=== PATIENT | male | born 1975 | race Caucasian/White ===

== ENCOUNTER → 2023-07-25 | Emergency (ER) | payer OTHER, SELFPAY ==
[~2023-07-25] MED LIST: KETOROLAC 30 MG/ML INJ ONE; MORPHINE 4 MG/ML SYR ONE; NA CHLORIDE 0.9% 1,000 ML ONE; ONDANSETRON 4 MG/2 ML VIAL ONE
[2023-07-25 08:17] LABS: Absolute Lymphocytes (CBC) 1.4 K/uL (0.7-4.9); Hematocrit 48.7 % (39.6-49.0); Lymphocytes % 22.9 % (15.3-44.8); MCV 89.2 fL (80-100); MPV 8.3 fL (7.6-11.3); Platelets 208 thou/uL (152-406); RBC Red Blood Cell Count 5.46 M/uL (4.33-5.43)
[2023-07-25 08:35] LABS: Specific Gravity 1.019 (1.005-1.030); Urine Bilirubin NEGATIVE (Negative); Urine Blood Negative (Negative); Urine Clarity Clear (Clear); Urine Color Light-Yellow (Yellow); Urine Glucose NEGATIVE (Negative); Urine Protein NEGATIVE (Negative); Urine Urobilinogen Normal (Normal)
[2023-07-25 08:41] LABS: Albumin 4.2 g/dL (3.4-5.0); Bilirubin Total 0.9 mg/dL (0.2-1.0); Protein, Total 8.1 g/dL (6.4-8.2)
[2023-07-25 08:42] LABS: Potassium 4.1 mEq/L (3.5-5.1)
--- NOTE | 2023-07-25 09:04 | RAD REPORT ---
EXAM DESCRIPTION: CT - Abdomen Pelvis Wo Contrast - 07/25/2023 8:32 am CLINICAL HISTORY: ABD PAIN COMPARISON: No comparisons TECHNIQUE: Thin cut axial CT imaging of the abdomen and pelvis was performed without IV contrast. Mu ltiplanar reformats were generated and reviewed. All CT scans are performed using dose optimization technique as appropriate and may include automated exposure control or mA/KV adjustment according to patient size. FINDINGS: No suspicious findings in the lung bases. The liver, spleen, and pancreas show no suspicious findings. Gallbladder was surgically removed. Left adrenal small mass measuring 2.2 cm, with internal density of about 10 Hounsfield units, not compati ble with a lipid rich adenoma. Symmetric renal contour, without suspicious parenchymal findings within limits of noncontrast techniq ue apart from multifocal cortical thinning more pronounced on the right, which may relate to sequelae of remote infarctions. . No evidence of radiopaque calculi or hydroureteronephrosis. No dilated bowel loops or bowel wall thickening. Appendix is unremarkable. Fluid filling throughout l duke segments of the proximal small bowel, nonspecific. Mild colonic diverticulosis. No free air, free fluid or inflammatory stranding. Small left inguinal hernia containing fat. No suspicious mass or bu lky lymphadenopathy. The urinary bladder is without significant finding. No suspicious bony findings. IMPRESSION: Fluid filling within proximal nondistended small bowel, nonspecific, and may relate to m ild enteritis or diarrheal state. Incidentally noted left adrenal 2.2 cm mass, which can be further evaluated by adrenal protocol MRI o utpatient basis, if no prior imaging evaluation of this lesion was performed.
--- NOTE | 2023-07-25 10:56 | RAD REPORT ---
EXAM DESCRIPTION: US - Scrotum Testicles - 07/25/2023 10:07 am CLINICAL HISTORY: L teste pain COMPARISON: No comparisons TECHNIQUE: Sonographic grayscale and color flow images of the scrotum were obtained. FINDINGS: The right testicle measures 4.7 x 2.3 x 2.8 cm. No intratesticular masses or evidence of t esticular torsion. The left testicle measures 4.6 x 2.2 x 3.0 cm. No intratesticular masses or evidence of testicular to rsion. Both epididymides are normal in size and appearance apart from small right epididymal head 4 mm cyst, and bilobed 7 mm left epididymal head cyst. No pathologic fluid collections. IMPRESSION: Unremarkable study apart from small bilateral epididymal head cysts, may represent small spermatoceles.
--- NOTE | 2023-07-25 11:40 | ER ---
Nurse's Notes [facility] Name: Dallas Jeff Age: 47 yrs Sex: Male : 1975 Arrival Date: 07/25/2023 Time: 07:23 Bed 13 Private MD: Diagnosis: Noninfective gastroenteritis and colitis, unspecified Presentation: 07/25 07:57 Chief complaint: Intermittent left flank pain x 1 month, pain started to radiate to hb left groin + difficulty urinating since yesterday. Coronavirus screen: At this time, the client does not indicate any symptoms associated with coronavirus-19. Ebola Screen: No symptoms or risks identified at this time. Initial Sepsis Screen: Does the patient meet any 2 criteria? No. Patient's initial sepsis screen is negative. Does the patient have a suspected source of infection? No. Patient's initial sepsis screen is negative. Risk Assessment: Do you want to hurt yourself or someone else? Patient reports no desire to harm self or others. Onset of symptoms was June 2023. 07:57 Method Of Arrival: Wheelchair hb 07:57 Acuity: LISA 3 hb Triage Assessment: 07:57 General: Appears in no apparent distress. Behavior is calm, cooperative. Pain: Pain hb currently is 5 out of 10 on a pain scale. at worst was 9 out of 10 on a pain scale. EENT: No signs and/or symptoms were reported regarding the EENT system. Neuro: Level of Consciousness is awake, alert, obeys commands, Oriented to person, place, time, situation. Cardiovascular: Patient's skin is warm and dry. Respiratory: Respiratory effort is even, unlabored, Respiratory pattern is regular, symmetrical. GI: Reports nausea. : Reports pain flank(s), difficulty urinating. Derm: Derm: Skin is pink, warm \T\ dry. Musculoskeletal: No signs and/or symptoms reported regarding the musculoskeletal system. Historical: - Allergies: 07:59 No Known Allergies; hb - Home Meds: 07:59 Rybelsus oral [Active]; Januvia oral [Active]; hb - PMHx: 07:59 DM2; hb - PSHx: 07:59 None; hb - Immunization history:: Adult Immunizations up to date. - Social history:: Smoking status: Patient denies any tobacco usage or history of. Screenin:55 [facility] ED Fall Risk Assessment (Adult) Score/Fall Risk Level 0 - 2 = Low Risk hb Oriented to surroundings, Maintained a safe environment. Abuse screen: Denies threats or abuse. Denies injuries from another. Nutritional screening: No deficits noted. Tuberculosis screening: No symptoms or risk factors identified. Assessment: 08:00 General: See triage assessment. . hb Vital Signs: 07:57 BP 141 / 90; Pulse 72; Resp 16; Temp 98(O); Pulse Ox 98% on R/A; Weight 95.25 kg; hb Height 5 ft. 6 in. ; Pain 5/10; 07:57 Body Mass Index 33.89 (95.25 kg, 167.64 cm) hb 07:57 Pain Scale: Adult hb ED Course: 07:26 Patient arrived in ED. im 07:57 Jose Oropeza MD is Attending Physician. ec2 07:58 Triage completed. hb 08:01 Arm band placed on. hb 08:15 Patient has correct armband on for positive identification. Provided Education on: hb tests, result times. 08:20 Initial lab(s) drawn, by me, sent to lab. Inserted saline lock: 20 gauge in right em1 forearm, using aseptic technique. Blood collected. 08:26 CMP Sent. hb 08:26 Lipase Sent. hb 08:26 Urinalysis w/ reflexes Sent. hb 08:34 CT Abd/Pelvis - Without Contrast In Process Unspecified. EDMS 09:28 Paris Vanessa, RN is Primary Nurse. ph 10:09 US Scrotum Testicles In Process Unspecified. EDMS Administered Medications: 08:20 Drug: NS 0.9% IV 1000 ml IV at 1 bolus Per protocol; 1000 mL bolus Route: IV; Rate: 1 hb bolus; Site: right antecubital; 08:20 Drug: TORadol - Ketorolac IVP 15 mg IVP once Route: IVP; Site: right antecubital; hb 08:20 Drug: Ondansetron IVP 4 mg IVP once; over 2 minutes Route: IVP; Site: right antecubital;hb 08:20 Drug: morphine IVP or IV 4 mg IVP once over 4 mins Route: IVP; Infused Over: 4 mins; hb Site: right antecubital; Medication: 08:00 VIS not applicable for this client. hb Outcome: 11:39 Discharge ordered by . ec2 12:14 Patient left the ED. ph Signatures: Dispatcher [employer] Robbie Lopez em1 Paris Vanessa RN RN Tamiko Campos RN RN Viridiana Tomas Edwin, MD MD ec2
--- NOTE | 2023-07-25 11:40 | EDPHYS ---
Physician Documentation [facility] Name: Dallas Jeff Age: 47 yrs Sex: Male : 1975 Arrival Date: 07/25/2023 Time: 07:23 Bed 13 Private MD: ED Physician Jose Oropeza HPI: 07/25 08:02 This 47 yrs old Male presents to ER via Wheelchair with complaints of ec2 Testicular Pain, Abdominal Pain, Low Back Pain. 08:02 Patient arrives today for evaluation of left back pain as well as left abdominal pain ec2 radiating to the testicles. States pain started last night, states it is progressively gotten worse. States the pain initially started in the flank and is now radiating into the groin. Patient reports some associated nausea without vomiting. Denies any diarrhea symptoms. Patient reports previous history of kidney stone. Denies any problems with the urine. Patient reports no specific testicular or penile concerns.. Historical: - Allergies: 07:59 No Known Allergies; hb - Home Meds: 07:59 Rybelsus oral [Active]; Januvia oral [Active]; hb - PMHx: 07:59 DM2; hb - PSHx: 07:59 None; hb - Immunization history:: Adult Immunizations up to date. - Social history:: Smoking status: Patient denies any tobacco usage or history of. ROS: 08:02 Constitutional: as per hpi ec2 Exam: 08:02 Constitutional: GEN: NAD Head: atraumatic Eyes: EOMI Ears: External ears are ec2 normal. CV: regular rate LUNGS: no respiratory distress ABD: non-distended, left abdomen TTP, left CVA TTP. SKIN: no evidence of rashes MSK: no evidence of trauma NEURO: moves all extremities equally Vital Signs: 07:57 BP 141 / 90; Pulse 72; Resp 16; Temp 98(O); Pulse Ox 98% on R/A; Weight 95.25 kg; hb Height 5 ft. 6 in. ; Pain 5/10; 07:57 Body Mass Index 33.89 (95.25 kg, 167.64 cm) hb 07:57 Pain Scale: Adult hb MDM: 07:55 Patient medically screened. ec2 08:02 Data reviewed: vital signs. ED course: Patient arrives today for evaluation of left ec2 flank pain and left abdominal pain. Examination remarkable for well-appearing nontoxic individual is otherwise in no acute distress with a reassuring vital signs, and abdominal findings as noted above. Will obtain lab work, CT imaging, urine studies, Treat the patient pain with morphine, crystalloid, Toradol as well as Zofran. Currently considering process such as kidney stone, diverticulitis, low suspicion for process such as appendicitis, additionally concerned pyelonephritis and UTI.. 08:45 ED course: Metabolic profile with appropriate renal function, appropriate electrolytes, ec2 reassuring urine that is noninfectious appearing. Pending CT imaging. . 09:23 ED course: On reassessment patient is well-appearing in no acute distress, patient with ec2 marked improvement in symptoms. Testicular examination shows some tenderness at the epididymis, no firm tender testicle, positive cremasteric reflex. Will obtain ultrasound as well to evaluate for epididymitis.. 10:58 ED course: Ultrasound with spermatoceles noted, no acute process identified. Will ec2 discharge to home, have him follow-up with primary care doctor.. 07/25 08:02 Order name: CBC with Diff; Complete Time: 08:27 ec2 07/25 08:02 Order name: CMP; Complete Time: 08:45 ec2 07/25 08:02 Order name: Lipase; Complete Time: 08:45 ec2 07/25 08:02 Order name: Urinalysis w/ reflexes; Complete Time: 08:45 ec2 07/25 08:02 Order name: CT Abd/Pelvis - Without Contrast; Complete Time: 09:18 ec2 07/25 09:23 Order name: US Scrotum Testicles; Complete Time: 10:58 ec2 07/25 08:02 Order name: IV Saline Lock; Complete Time: 08:20 ec2 07/25 08:02 Order name: Labs collected and sent; Complete Time: 08:20 ec2 Administered Medications: 08:20 Drug: NS 0.9% IV 1000 ml IV at 1 bolus Per protocol; 1000 mL bolus Route: IV; Rate: 1 hb bolus; Site: right antecubital; 08:20 Drug: TORadol - Ketorolac IVP 15 mg IVP once Route: IVP; Site: right antecubital; hb 08:20 Drug: Ondansetron IVP 4 mg IVP once; over 2 minutes Route: IVP; Site: right antecubital;hb 08:20 Drug: morphine IVP or IV 4 mg IVP once over 4 mins Route: IVP; Infused Over: 4 mins; hb Site: right antecubital; Disposition Summary: 07/25/23 11:39 Discharge Ordered Notes: Location: Home ec2 Condition: Stable ec2 Diagnosis - Noninfective gastroenteritis and colitis, unspecified ec2 Followup: ec2 - With: Private Physician - When: - Reason: Recheck today's complaints Discharge Instructions: - Discharge Summary Sheet ec2 - Viral Gastroenteritis, Adult ec2 Forms: - Work release form hb - Medication Reconciliation Form ec2 - Thank You Letter ec2 - Antibiotic Education ec2 - Prescription Opioid Use ec2 - Patient Portal Instructions ec2 - Leadership Thank You Letter ec2 Prescriptions: - Compazine 10 mg Oral Tablet - take 1 tablet ORAL route every 8 hours As needed; 20 tablet; Refills: 0, ec2 Product Selection Permitted Signatures: Dispatcher [employer] Tamiko Ramírez RN [facility] Jose Oropeza MD MD ec2 Corrections: (The following items were deleted from the chart) 08:19 08:18 Patient medically screened. ec2 ec2
[2023-07-25 12:48] VITALS: BP 141/90; TEMP 98; O2SAT 98
== END ==
LOC: ER 07:23
DX: K52.9 Noninfective gastroenteritis and colitis, unspecified (principal); E11.9 Type 2 diabetes mellitus without complications; Z87.442 Personal history of urinary calculi
CPT/HCPCS: 85025; 36415; 81003; 83690; 80053; 74176; 76870; 96375; 96374; 99284; J2405; J7030